=== PATIENT | male | born 1935 | race Hispanic/Latino ===

== ENCOUNTER 2018-05-20 18:09 | Emergency (ER) | payer MEDICARE, OTHER ==
[~2018-05-20] VITALS: Ht 165.1 cm; Wt 86.2 kg
[~2018-05-20 18:09] MED LIST: ARICEPT5 MG PO; CLOPIDOGREL75 MG PO; METOPROLOL TART50 MG PO; SEROQUEL XR200 MG PO; SIMVASTATIN40 MG PO; TAMSULOSIN HCL0.4 MG PO
[2018-05-20] MEDS ORDERED: TAMSULOSIN HCL0.4 MG PO (19:05)
[2018-05-20 19:47] LABS: BASOPHILS % 0.8 % (0.0-1.0); EOSINOPHILS # (AUTO) 0.1 (0.0-0.4); EOSINOPHILS % 2.8 % (0.0-6.0); HEMATOCRIT 33.3 % (38.2-49.6); HEMOGLOBIN 10.6 g/dL (14.0-18.0); LYMPHOCYTES # (AUTO) 2.3 (1.0-3.2); LYMPHOCYTES % 44.8 % (18.0-39.1); MEAN CORPUSCULAR HEMOGLOBIN 29.3 pg (28-32); MEAN CORPUSCULAR HGB CONC 31.8 g/dL (31-35); MONOCYTES # (AUTO) 0.8 (0.2-0.8); MONOCYTES % 14.9 % (4.4-11.3); NEUTROPHILS # (AUTO) 1.9 (2.1-6.9); NEUTROPHILS % 36.5 % (38.7-80.0); PLATELET COUNT 241 x10e3/uL (140-360); RED BLOOD COUNT 3.62 x10e6/uL (4.3-5.7); RED CELL DISTRIBUTION WIDTH 15.9 % (11.7-14.4)
[2018-05-20 20:05] LABS: INR 1.2; PROTHROMBIN TIME 14.3 seconds (11.9-14.5)
[2018-05-20 20:06] LABS: PARTIAL THROMBOPLASTIN TIME 33.2 seconds (23.8-35.5)
[2018-05-20 20:13] LABS: ALBUMIN 3.2 g/dL (3.5-5.0); CALCIUM 9.4 mg/dL (8.4-10.2); CREATININE, SERUM 1.27 mg/dL (0.72-1.25)
[2018-05-20 20:14] LABS: ALBUMIN/GLOBULIN RATIO 0.8 (0.8-2.0)
--- NOTE | 2018-05-20 20:36 | Diagnostic Imaging Report ---
EXAM: CT ABDOMEN AND PELVIS without IV CONTRAST INDICATION: Hematuria, history of stones COMPARISON: CT of the abdomen and pelvis without IV contrast July 30, 2009 TECHNIQUE: The abdomen and pelvis were scanned using a multidetector helical scanner. Coronal and sagittal reformations were obtained. Dose modulation, iterative reconstruction, and/or weight based adjustment of the mA/kV was utilized to reduce the radiation dose to as low as reasonably achievable. Renal stone protocol performed. IV Contrast: None Oral Contrast: None CTDIvol has been reviewed. It is below the limits set by the Radiation Protocol Committee (RPC). FINDINGS: LOWER THORAX: Nonspecific septal thickening and ground glass opacities, similar to prior exam. LIVER: No masses BILIARY: Cholecystectomy. No ductal dilation. SPLEEN: No masses PANCREAS: No masses ADRENALS: No nodules RIGHT KIDNEY: Stable conglomerate of multiple stones measuring 1.4 x 1.7 cm in total. This is similar to prior CT. No hydronephrosis. No ureteral stones. Simple cortical cyst measuring 2.2 cm medial aspect of the inferior pole. LEFT KIDNEY: Stable atrophy of the left kidney. Interval decrease in size of the simple cyst measuring 3.3 cm interpolar region. GI TRACT: No wall thickening or obstruction. Colonic diverticulosis. Normal appendix. VESSELS: Advanced atherosclerotic changes of the abdominal aorta with stable ectasia of the aorta and its branches. PERITONEUM/RETROPERITONEUM: No free air or fluid LYMPH NODES: No lymphadenopathy REPRODUCTIVE ORGANS: The prostate is within normal size limits. BLADDER: Layering high density material in the bladder. SOFT TISSUES: Normal BONES: No suspicious bone lesions. IMPRESSION: 1. Stable conglomerate of nonobstructing stones in the superior pole of the right kidney. 2. No hydronephrosis or ureteral stones. 3. Stable atrophy of the left kidney. 4. New layering high density material in the bladder. This could represent multiple layering bladder stones and/or blood clot. Signed by: Dr. Marylu Trejo M.D. on 05/20/2018 8:33 PM
[2018-05-20 21:01] LABS: CLARITY,URINE TURBID (CLEAR); COLOR,URINE RED (YELLOW)
[2018-05-20 21:02] LABS: KETONES,URINE TRACE (NEGATIVE); LEUKOCYTE ESTERASE ,URINE TRACE (NEGATIVE); NITRITE,URINE POSITIVE (NEGATIVE); PROTEIN,URINE DIPSTICK 3+ (NEGATIVE)
[2018-05-20 21:03] LABS: BILIRUBIN,URINE NEGATIVE (NEGATIVE); URINE UROBILINOGEN 1 mg/dL (0.2 - 1)
[2018-05-20 21:08] LABS: BACTERIA,URINE MODERATE /HPF; EPITHELIAL CELLS,URINE RARE /LPF; RBC,URINE >50 /HPF (0-5)
[2018-05-20] MEDS ORDERED: CEFTRIAXONE SOD 1 GM VIAL IV ONE (21:15)
[2018-05-20 21:31] VITALS: BP 181/76
== END 2018-05-20 21:40 | disposition home or self-care (01) ==
LOC: ER 18:09
DX: N30.91 Cystitis, unspecified with hematuria (principal); F03.90 Unspecified dementia, unspecified severity, without behavioral disturbance, psychotic disturbance, mood disturbance, and anxiety; I10 Essential (primary) hypertension; I25.10 Atherosclerotic heart disease of native coronary artery without angina pectoris; E78.5 Hyperlipidemia, unspecified; Z91.81 History of falling; Z86.73 Personal history of transient ischemic attack (TIA), and cerebral infarction without residual deficits
CPT/HCPCS: 36415; 74176; 80053; 81001; 85025; 85610; 85730; 87086; 99284

== ENCOUNTER 2021-03-22 13:18 | Emergency (ER) | payer MEDICARE, OTHER ==
[~2021-03-22] VITALS: Ht 165.1 cm; Wt 86.2 kg
[2021-03-22 15:28] LABS: BASOPHILS % 0.5 % (0.0-1.0); EOSINOPHILS # (AUTO) 0.1 (0.0-0.4); EOSINOPHILS % 1.1 % (0.0-6.0); HEMATOCRIT 35.8 % (38.2-49.6); HEMOGLOBIN 11.2 g/dL (14.0-18.0); LYMPHOCYTES # (AUTO) 1.8 (1.0-3.2); LYMPHOCYTES % 24.6 % (18.0-39.1); MEAN CORPUSCULAR HEMOGLOBIN 28.6 pg (28-32); MEAN CORPUSCULAR HGB CONC 31.3 g/dL (31-35); MEAN CORPUSCULAR VOLUME 91.3 fL (81-99); NEUTROPHILS # (AUTO) 4.4 (2.1-6.9); NEUTROPHILS % 60.4 % (38.7-80.0); PLATELET COUNT 237 x10e3/uL (140-360); RED BLOOD COUNT 3.92 x10e6/uL (4.3-5.7); RED CELL DISTRIBUTION WIDTH 16.7 % (11.7-14.4)
[2021-03-22 15:44] LABS: ALBUMIN 3.3 g/dL (3.5-5.0); ALBUMIN/GLOBULIN RATIO 0.8 (0.8-2.0); CALCIUM 8.9 mg/dL (8.4-10.2); CREATININE, SERUM 1.42 mg/dL (0.72-1.25)
[2021-03-22] MEDS ORDERED: CEFDINIR300 MG PO (17:49)
[2021-03-22] MEDS ORDERED: AZITHROMYCIN250 MG PO (17:50)
[2021-03-22] MEDS ORDERED: SODIUM CHLORIDE 0.9% 250ML 250 ML ONE (17:52)
[2021-03-22] MEDS ORDERED: CEFTRIAXONE 1 GM in SODIUM CHLORIDE 0.9% 50ML 50 ML IV SCH (18:00)
== END 2021-03-22 18:14 | disposition home or self-care (01) ==
LOC: ER 14:10
DX: J18.9 Pneumonia, unspecified organism (principal); I10 Essential (primary) hypertension; I25.10 Atherosclerotic heart disease of native coronary artery without angina pectoris; Z86.73 Personal history of transient ischemic attack (TIA), and cerebral infarction without residual deficits; H91.90 Unspecified hearing loss, unspecified ear
CPT/HCPCS: 36415; 70450; 71045; 80053; 84484; 85025; 93005; 99284; J0456; J0696; J7050

== ENCOUNTER 2021-11-29 13:54 | Inpatient (IN) | payer MEDICARE, OTHER ==
[~2021-11-29] VITALS: Ht 172.7 cm; Wt 102.1 kg
[~2021-11-29 13:54] MED LIST changes: +AZITHROMYCIN250 MG PO; +CEFDINIR300 MG PO
[2021-11-29 14:57] LABS: BASOPHILS % 0.2 % (0.0-1.0); EOSINOPHILS % 0.1 % (0.0-6.0); HEMATOCRIT 36.6 % (38.2-49.6); HEMOGLOBIN 11.7 g/dL (14.0-18.0); LYMPHOCYTES # (AUTO) 1.6 (1.0-3.2); LYMPHOCYTES % 14.8 % (18.0-39.1); MEAN CORPUSCULAR HEMOGLOBIN 29.1 pg (28-32); MONOCYTES # (AUTO) 1.3 (0.2-0.8); MONOCYTES % 11.8 % (4.4-11.3); NEUTROPHILS # (AUTO) 7.8 (2.1-6.9); NEUTROPHILS % 72.8 % (38.7-80.0); PLATELET COUNT 286 x10e3/uL (140-360); RED BLOOD COUNT 4.02 x10e6/uL (4.3-5.7); RED CELL DISTRIBUTION WIDTH 16.5 % (11.7-14.4)
[2021-11-29 15:15] LABS: ALBUMIN/GLOBULIN RATIO 0.6 (0.8-2.0); ANION GAP 14.8 mmol/L (8-16); CALCIUM 9.6 mg/dL (8.4-10.2); CREATININE, SERUM 1.37 mg/dL (0.72-1.25); POTASSIUM 3.8 mmol/L (3.5-5.1)
[2021-11-29] MEDS ORDERED: SODIUM CHLORIDE 0.9% 1000ML 1,000 ML IV ONE ×2 (15:15→17:45)
[2021-11-29 15:21] LABS: CREATINE KINASE MB 1.1 ng/mL (0-5.0)
[2021-11-29] MEDS: CEFTRIAXONE 1 GM in SODIUM CHLORIDE 0.9% 50ML 50 ML IV SCH (16:00)
[2021-11-29] MEDS: HYDRALAZINE HCL 20 MG/ML VIAL IV PRN (17:47)
[2021-11-29] MEDS ORDERED: SODIUM CHLORIDE 0.9% 1000ML 1,000 ML ONE (17:50)
[2021-11-29 20:00] VITALS: BP 160/59
[2021-11-29 20:15] VITALS: BP 160/59
[2021-11-29 20:38] LABS: CLARITY,URINE SL CLOUDY (CLEAR); COLOR,URINE YELLOW (YELLOW); KETONES,URINE 2+ (NEGATIVE); LEUKOCYTE ESTERASE ,URINE NEGATIVE (NEGATIVE); NITRITE,URINE NEGATIVE (NEGATIVE); PROTEIN,URINE DIPSTICK 1+ (NEGATIVE); URINE UROBILINOGEN 0.2 mg/dL (0.2 - 1)
[2021-11-29 20:45] LABS: AMORPHOUS SEDIMENT,URINE FEW (FEW); BACTERIA,URINE MODERATE /HPF
[2021-11-29 21:17] VITALS: BP 160/59
[2021-11-29] MEDS ORDERED: SYNTHROID50 MCG PO (21:19)
[2021-11-29] MEDS ORDERED: SODIUM CHLORIDE 0.45% 1,000 ML IV SCH (23:00)
[2021-11-30] VITALS: BP 173/69
[2021-11-30 04:00] VITALS: BP 195/73
[2021-11-30] MEDS: HYDRALAZINE HCL 20 MG/ML VIAL IV PRN (04:14)
[2021-11-30 04:53] LABS: BASOPHILS % 0.3 % (0.0-1.0); EOSINOPHILS % 0.1 % (0.0-6.0); HEMATOCRIT 31.7 % (38.2-49.6); HEMOGLOBIN 10.2 g/dL (14.0-18.0); LYMPHOCYTES # (AUTO) 2.4 (1.0-3.2); LYMPHOCYTES % 20.4 % (18.0-39.1); MEAN CORPUSCULAR HEMOGLOBIN 29.1 pg (28-32); MEAN CORPUSCULAR HGB CONC 32.2 g/dL (31-35); MEAN CORPUSCULAR VOLUME 90.3 fL (81-99); MONOCYTES # (AUTO) 1.7 (0.2-0.8); MONOCYTES % 14.2 % (4.4-11.3); NEUTROPHILS # (AUTO) 7.7 (2.1-6.9); NEUTROPHILS % 64.4 % (38.7-80.0); PLATELET COUNT 258 x10e3/uL (140-360); RED BLOOD COUNT 3.51 x10e6/uL (4.3-5.7); RED CELL DISTRIBUTION WIDTH 16.4 % (11.7-14.4)
[2021-11-30 05:26] LABS: ANION GAP 11.3 mmol/L (8-16); CALCIUM 8.3 mg/dL (8.4-10.2); CREATININE, SERUM 1.17 mg/dL (0.72-1.25); POTASSIUM 3.3 mmol/L (3.5-5.1)
[2021-11-30 05:53] LABS: CHOL/HDL RATIO 2.6 (3.9-4.7)
[2021-11-30 06:16] VITALS: BP 169/72
[2021-11-30] MEDS ORDERED: LEVOTHYROXINE SODIUM 25 MCG TABLET PO SCH (06:30)
[2021-11-30 08:00] VITALS: BP 164/66
[2021-11-30 09:00] VITALS: BP 164/66
[2021-11-30] MEDS ORDERED: MULTIVITAMINS/MINERALS TAB PO SCH (09:00)
[2021-11-30] MEDS ORDERED: CLOPIDOGREL BISULFATE 75 MG TAB PO SCH (09:00)
[2021-11-30] MEDS ORDERED: TAMSULOSIN HCL 0.4 MG CAP PO SCH (09:00)
[2021-11-30] MEDS ORDERED: METOPROLOL TARTRATE 50 MG TAB PO SCH (09:00)
[2021-11-30] MEDS ORDERED: SODIUM CHLORIDE 0.9% 1000ML 1,000 ML IV SCH (12:15)
[2021-11-30] MEDS ORDERED: POTASSIUM CHLORIDE 20 MEQ TAB CR PO ONE (12:45)
[2021-11-30 16:00] VITALS: BP 156/73
[2021-11-30] MEDS: CEFTRIAXONE 1 GM in SODIUM CHLORIDE 0.9% 50ML 50 ML IV SCH (16:04)
[2021-11-30] MEDS ORDERED: QUETIAPINE FUMARATE 200 MG PO SCH (21:00)
[2021-11-30] MEDS ORDERED: DONEPEZIL HCL 5 MG TAB PO SCH (21:00)
== END 2021-11-30 18:53 | DRG 683 ==
LOC: ER 14:00 → ERHOLD 17:35 → MED/SURG 18:30
PROVIDERS: ADMIT Internal Medicine; ATTEND Internal Medicine
DX: N17.9 Acute kidney failure, unspecified (principal); N39.0 Urinary tract infection, site not specified; I69.359 Hemiplegia and hemiparesis following cerebral infarction affecting unspecified side; E03.9 Hypothyroidism, unspecified; E66.01 Morbid (severe) obesity due to excess calories; Z68.34 Body mass index [BMI] 34.0-34.9, adult; G30.9 Alzheimer's disease, unspecified; F02.80 Dementia in other diseases classified elsewhere, unspecified severity, without behavioral disturbance, psychotic disturbance, mood disturbance, and anxiety; I25.10 Atherosclerotic heart disease of native coronary artery without angina pectoris; H91.90 Unspecified hearing loss, unspecified ear; R31.29 Other microscopic hematuria; N28.1 Cyst of kidney, acquired; E87.6 Hypokalemia; E66.9 Obesity, unspecified; C61 Malignant neoplasm of prostate; E86.0 Dehydration; Z74.09 Other reduced mobility
CPT/HCPCS: 36415; 70450; 71045; 76770; 80048; 80053; 80061; 81001; 82550; 82553; 83036; 83605; 84443; 84484; 85025; 87040; 87086; 93005; 94799; 99251; 99284; J0360; J0696; J7030; U0002

== ENCOUNTER 2022-01-07 11:40 | Inpatient (IN) | payer MEDICARE, OTHER ==
[~2022-01-07] VITALS: Ht 172.7 cm; Wt 102.1 kg
[~2022-01-07 11:40] MED LIST changes: +SYNTHROID50 MCG PO
[2022-01-07 12:17] LABS: BASOPHILS # (AUTO) 0.1 (0.0-0.1); BASOPHILS % 0.7 % (0.0-1.0); EOSINOPHILS # (AUTO) 0.1 (0.0-0.4); EOSINOPHILS % 1.6 % (0.0-6.0); HEMATOCRIT 29.6 % (38.2-49.6); HEMOGLOBIN 9.7 g/dL (14.0-18.0); LYMPHOCYTES # (AUTO) 2.5 (1.0-3.2); LYMPHOCYTES % 36.1 % (18.0-39.1); MEAN CORPUSCULAR HEMOGLOBIN 29.5 pg (28-32); MEAN CORPUSCULAR HGB CONC 32.8 g/dL (31-35); MONOCYTES # (AUTO) 0.7 (0.2-0.8); MONOCYTES % 10.1 % (4.4-11.3); NEUTROPHILS # (AUTO) 3.5 (2.1-6.9); NEUTROPHILS % 51.2 % (38.7-80.0); PLATELET COUNT 320 x10e3/uL (140-360); RED BLOOD COUNT 3.29 x10e6/uL (4.3-5.7); RED CELL DISTRIBUTION WIDTH 16.4 % (11.7-14.4)
[2022-01-07 12:42] LABS: ALBUMIN 2.6 g/dL (3.5-5.0); ALBUMIN/GLOBULIN RATIO 0.6 (0.8-2.0); ANION GAP 12.9 mmol/L (8-16); CALCIUM 8.5 mg/dL (8.4-10.2); CREATININE, SERUM 1.12 mg/dL (0.72-1.25); POTASSIUM 3.9 mmol/L (3.5-5.1)
[2022-01-07] MEDS ORDERED: SODIUM CHLORIDE FLUSH 10 ML SYR INJ PRN (14:00)
[2022-01-07] MEDS ORDERED: GUAIFENESI100 MG/5 M PO (15:22)
[2022-01-07] MEDS ORDERED: QUETIAPINE FUMA25 MG PO (15:22)
[2022-01-07] MEDS ORDERED: HYDRALAZINE HCL10 MG PO (15:22)
[2022-01-07 16:00] VITALS: BP 153/62
[2022-01-07] MEDS: SODIUM CHLORIDE 0.9% 250ML IRRIG IR SCH ×4 (16:15→21:17)
[2022-01-07 16:21] VITALS: BP 153/62
[2022-01-07] MEDS ORDERED: GUAIFENESIN 200 MG/10 ML UDC PO PRN (17:30)
[2022-01-07] MEDS ORDERED: HYDRALAZINE HCL 10 MG TAB PO PRN (17:30)
[2022-01-07] MEDS ORDERED: IOPAMIDOL 370 MG/ML 100 ML INFUS..BTL INJ ONE (17:57)
[2022-01-07] MEDS ORDERED: SODIUM CHLORIDE 0.9% 250ML 250 ML ONE (17:58)
[2022-01-07] MEDS: METOPROLOL TARTRATE 50 MG TAB PO SCH (18:35)
[2022-01-07] MEDS: TAMSULOSIN HCL 0.4 MG CAP PO SCH (21:17)
[2022-01-07] MEDS: DONEPEZIL HCL 5 MG TAB PO SCH (21:17)
[2022-01-07] MEDS: QUETIAPINE FUMARATE 25 MG TAB PO SCH (21:17)
[2022-01-08] VITALS (9 sets, daily range): BP systolic 92–165; BP diastolic 42–63
[2022-01-08] MEDS: SODIUM CHLORIDE 0.9% 250ML IRRIG IR SCH ×6 (01:58→22:00)
[2022-01-08] MEDS: LEVOTHYROXINE SODIUM 25 MCG TABLET PO SCH (05:39)
[2022-01-08 06:16] LABS: BASOPHILS % 0.1 % (0.0-1.0); HEMATOCRIT 30.3 % (38.2-49.6); HEMOGLOBIN 9.7 g/dL (14.0-18.0); MEAN CORPUSCULAR HEMOGLOBIN 29.1 pg (28-32); MONOCYTES # (AUTO) 1.3 (0.2-0.8); MONOCYTES % 9.3 % (4.4-11.3); NEUTROPHILS # (AUTO) 10.7 (2.1-6.9); NEUTROPHILS % 76.2 % (38.7-80.0); PLATELET COUNT 277 x10e3/uL (140-360); RED BLOOD COUNT 3.33 x10e6/uL (4.3-5.7); RED CELL DISTRIBUTION WIDTH 16.4 % (11.7-14.4)
[2022-01-08 06:42] LABS: ANION GAP 12.1 mmol/L (8-16); CALCIUM 8.3 mg/dL (8.4-10.2); CREATININE, SERUM 1.13 mg/dL (0.72-1.25); POTASSIUM 4.1 mmol/L (3.5-5.1)
[2022-01-08] MEDS: METOPROLOL TARTRATE 50 MG TAB PO SCH ×2 (09:31→17:00)
[2022-01-08] MEDS: B&O 60MG R/S 60 MG SUPP PR PRN (12:12)
[2022-01-08 17:20] LABS: CLARITY,URINE CLOUDY (CLEAR); COLOR,URINE RED (YELLOW); KETONES,URINE 1+ (NEGATIVE); LEUKOCYTE ESTERASE ,URINE 2+ (NEGATIVE); NITRITE,URINE POSITIVE (NEGATIVE); PROTEIN,URINE DIPSTICK >=300 (NEGATIVE); URINE UROBILINOGEN 1 mg/dL (0.2 - 1)
[2022-01-08 17:30] LABS: BACTERIA,URINE MANY /HPF; EPITHELIAL CELLS,URINE FEW /LPF; RBC,URINE >50 /HPF (0-5); WBC,URINE (MAN) 21-50 /HPF (0-5)
[2022-01-08] MEDS: QUETIAPINE FUMARATE 25 MG TAB PO SCH (21:00)
[2022-01-08] MEDS: TAMSULOSIN HCL 0.4 MG CAP PO SCH (21:04)
[2022-01-08] MEDS: DONEPEZIL HCL 5 MG TAB PO SCH (21:04)
[2022-01-09] MEDS: QUETIAPINE FUMARATE 25 MG TAB PO SCH ×2 (00:32→20:15)
[2022-01-09] MEDS: SODIUM CHLORIDE 0.9% 250ML IRRIG IR SCH ×6 (04:30→22:30)
[2022-01-09 05:16] VITALS: BP 130/67
[2022-01-09 05:40] LABS: BASOPHILS % 0.3 % (0.0-1.0); EOSINOPHILS # (AUTO) 0.2 (0.0-0.4); EOSINOPHILS % 1.7 % (0.0-6.0); HEMATOCRIT 27.4 % (38.2-49.6); HEMOGLOBIN 8.8 g/dL (14.0-18.0); LYMPHOCYTES # (AUTO) 2.8 (1.0-3.2); MEAN CORPUSCULAR HEMOGLOBIN 29.4 pg (28-32); MEAN CORPUSCULAR HGB CONC 32.1 g/dL (31-35); MEAN CORPUSCULAR VOLUME 91.6 fL (81-99); MONOCYTES # (AUTO) 0.9 (0.2-0.8); MONOCYTES % 9.3 % (4.4-11.3); NEUTROPHILS # (AUTO) 5.8 (2.1-6.9); NEUTROPHILS % 59.4 % (38.7-80.0); PLATELET COUNT 260 x10e3/uL (140-360); RED BLOOD COUNT 2.99 x10e6/uL (4.3-5.7); RED CELL DISTRIBUTION WIDTH 16.7 % (11.7-14.4)
[2022-01-09 06:04] LABS: ANION GAP 13.6 mmol/L (8-16); CREATININE, SERUM 1.17 mg/dL (0.72-1.25); POTASSIUM 3.6 mmol/L (3.5-5.1)
[2022-01-09] MEDS: LEVOTHYROXINE SODIUM 25 MCG TABLET PO SCH (06:04)
[2022-01-09 08:02] VITALS: BP 133/61
[2022-01-09] MEDS: METOPROLOL TARTRATE 50 MG TAB PO SCH ×2 (08:44→16:57)
[2022-01-09] MEDS: B&O 60MG R/S 60 MG SUPP PR PRN ×2 (11:29→22:30)
[2022-01-09 12:45] VITALS: BP 150/65
[2022-01-09 20:00] VITALS: BP 117/50
[2022-01-09] MEDS: DONEPEZIL HCL 5 MG TAB PO SCH (20:15)
[2022-01-09] MEDS: TAMSULOSIN HCL 0.4 MG CAP PO SCH (20:15)
[2022-01-10] VITALS (8 sets, daily range): BP systolic 95–134; BP diastolic 31–82
[2022-01-10] MEDS: SODIUM CHLORIDE 0.9% 250ML IRRIG IR SCH ×6 (02:04→20:56)
[2022-01-10] MEDS: LEVOTHYROXINE SODIUM 25 MCG TABLET PO SCH (06:11)
[2022-01-10] MEDS: METOPROLOL TARTRATE 50 MG TAB PO SCH ×2 (08:19→16:26)
[2022-01-10] MEDS: B&O 60MG R/S 60 MG SUPP PR PRN ×2 (09:30→20:56)
[2022-01-10 10:08] LABS: ANION GAP 13.1 mmol/L (8-16); CALCIUM 8.2 mg/dL (8.4-10.2); CREATININE, SERUM 1.13 mg/dL (0.72-1.25); POTASSIUM 4.1 mmol/L (3.5-5.1)
[2022-01-10] MEDS: DONEPEZIL HCL 5 MG TAB PO SCH (20:05)
[2022-01-10] MEDS: QUETIAPINE FUMARATE 25 MG TAB PO SCH (20:05)
[2022-01-10] MEDS: TAMSULOSIN HCL 0.4 MG CAP PO SCH (20:05)
[2022-01-11] VITALS (7 sets, daily range): BP systolic 110–134; BP diastolic 22–56
[2022-01-11] MEDS: SODIUM CHLORIDE 0.9% 250ML IRRIG IR SCH ×6 (01:30→21:31)
[2022-01-11] MEDS: LEVOTHYROXINE SODIUM 25 MCG TABLET PO SCH (05:34)
[2022-01-11] MEDS: B&O 60MG R/S 60 MG SUPP PR PRN ×3 (05:49→21:31)
[2022-01-11] MEDS: METOPROLOL TARTRATE 50 MG TAB PO SCH ×3 (09:00→16:15)
[2022-01-11 10:42] LABS: HEMATOCRIT 28.1 % (38.2-49.6); HEMOGLOBIN 8.9 g/dL (14.0-18.0)
[2022-01-11] MEDS ORDERED: SODIUM CHLORIDE 0.9% 1000ML 1,000 ML ONE (11:02)
[2022-01-11] MEDS: QUETIAPINE FUMARATE 25 MG TAB PO SCH (21:30)
[2022-01-11] MEDS: TAMSULOSIN HCL 0.4 MG CAP PO SCH (21:30)
[2022-01-11] MEDS: DONEPEZIL HCL 5 MG TAB PO SCH (21:30)
[2022-01-12] VITALS (8 sets, daily range): BP systolic 109–123; BP diastolic 40–67
[2022-01-12] MEDS: SODIUM CHLORIDE 0.9% 250ML IRRIG IR SCH ×6 (02:32→20:39)
[2022-01-12] MEDS: B&O 60MG R/S 60 MG SUPP PR PRN ×3 (04:00→20:39)
[2022-01-12] MEDS: LEVOTHYROXINE SODIUM 25 MCG TABLET PO SCH (05:21)
[2022-01-12] MEDS: METOPROLOL TARTRATE 50 MG TAB PO SCH ×2 (09:00→17:00)
[2022-01-12 10:27] LABS: BASOPHILS # (AUTO) 0.1 (0.0-0.1); BASOPHILS % 0.4 % (0.0-1.0); EOSINOPHILS # (AUTO) 0.4 (0.0-0.4); EOSINOPHILS % 3.7 % (0.0-6.0); HEMATOCRIT 29.5 % (38.2-49.6); HEMOGLOBIN 9.2 g/dL (14.0-18.0); LYMPHOCYTES # (AUTO) 3.3 (1.0-3.2); LYMPHOCYTES % 29.6 % (18.0-39.1); MEAN CORPUSCULAR HEMOGLOBIN 29.3 pg (28-32); MEAN CORPUSCULAR HGB CONC 31.2 g/dL (31-35); MEAN CORPUSCULAR VOLUME 93.9 fL (81-99); MONOCYTES # (AUTO) 1.2 (0.2-0.8); MONOCYTES % 10.7 % (4.4-11.3); NEUTROPHILS # (AUTO) 6.2 (2.1-6.9); NEUTROPHILS % 55.2 % (38.7-80.0); PLATELET COUNT 340 x10e3/uL (140-360); RED BLOOD COUNT 3.14 x10e6/uL (4.3-5.7); RED CELL DISTRIBUTION WIDTH 16.6 % (11.7-14.4)
[2022-01-12] MEDS ORDERED: ACETAMINOPHEN 325 MG TAB PO PRN (14:30)
[2022-01-12] MEDS: PHENAZOPYRIDINE HCL 100 MG TAB PO PRN (14:50)
[2022-01-12] MEDS: QUETIAPINE FUMARATE 25 MG TAB PO SCH (20:39)
[2022-01-12] MEDS: DONEPEZIL HCL 5 MG TAB PO SCH (20:39)
[2022-01-12] MEDS: TAMSULOSIN HCL 0.4 MG CAP PO SCH (20:39)
[2022-01-13] VITALS (8 sets, daily range): BP systolic 95–134; BP diastolic 40–72
[2022-01-13] MEDS: SODIUM CHLORIDE 0.9% 250ML IRRIG IR SCH ×6 (02:45→20:38)
[2022-01-13] MEDS: B&O 60MG R/S 60 MG SUPP PR PRN ×3 (03:45→20:38)
[2022-01-13] MEDS: LEVOTHYROXINE SODIUM 25 MCG TABLET PO SCH (06:03)
[2022-01-13] MEDS: METOPROLOL TARTRATE 50 MG TAB PO SCH ×2 (09:00→17:37)
[2022-01-13] MEDS: DEXTROSE 5%/0.45% SOD CHL 1,000 ML IV SCH (18:15)
[2022-01-13] MEDS ORDERED: SODIUM CHLORIDE 0.9% 250ML 250 ML IV ONE (20:00)
[2022-01-13] MEDS: DONEPEZIL HCL 5 MG TAB PO SCH (20:24)
[2022-01-13] MEDS: TAMSULOSIN HCL 0.4 MG CAP PO SCH (20:24)
[2022-01-13] MEDS: PHENAZOPYRIDINE HCL 100 MG TAB PO PRN (20:25)
[2022-01-13] MEDS: QUETIAPINE FUMARATE 25 MG TAB PO SCH (20:25)
[2022-01-13] MEDS ORDERED: LORAZEPAM INJ 2 MG/ML VIAL IV ONE (23:00)
[2022-01-14] VITALS (7 sets, daily range): BP systolic 92–121; BP diastolic 48–78
[2022-01-14] MEDS: SODIUM CHLORIDE 0.9% 250ML IRRIG IR SCH ×6 (00:53→22:19)
[2022-01-14] MEDS: DEXTROSE 5%/0.45% SOD CHL 1,000 ML IV SCH ×3 (04:58→23:24)
[2022-01-14] MEDS: LEVOTHYROXINE SODIUM 25 MCG TABLET PO SCH (04:58)
[2022-01-14 05:00] LABS: BASOPHILS % 0.4 % (0.0-1.0); EOSINOPHILS # (AUTO) 0.1 (0.0-0.4); EOSINOPHILS % 1.7 % (0.0-6.0); HEMATOCRIT 27.1 % (38.2-49.6); HEMOGLOBIN 8.3 g/dL (14.0-18.0); LYMPHOCYTES # (AUTO) 1.5 (1.0-3.2); LYMPHOCYTES % 19.1 % (18.0-39.1); MEAN CORPUSCULAR HGB CONC 30.6 g/dL (31-35); MEAN CORPUSCULAR VOLUME 94.8 fL (81-99); MONOCYTES # (AUTO) 0.9 (0.2-0.8); MONOCYTES % 11.9 % (4.4-11.3); NEUTROPHILS # (AUTO) 5.3 (2.1-6.9); NEUTROPHILS % 66.6 % (38.7-80.0); PLATELET COUNT 350 x10e3/uL (140-360); RED BLOOD COUNT 2.86 x10e6/uL (4.3-5.7); RED CELL DISTRIBUTION WIDTH 16.3 % (11.7-14.4)
[2022-01-14 05:20] LABS: ANION GAP 15.9 mmol/L (8-16); CALCIUM 8.3 mg/dL (8.4-10.2); CREATININE, SERUM 1.76 mg/dL (0.72-1.25); POTASSIUM 3.9 mmol/L (3.5-5.1)
[2022-01-14] MEDS: METOPROLOL TARTRATE 50 MG TAB PO SCH ×2 (09:00→17:00)
[2022-01-14] MEDS ORDERED: SEVOFLURANE INHAL SOLN 250 ML PEN BTL ONE (12:11)
[2022-01-14] MEDS ORDERED: LIDOCAINE HCL 2% LOCAL INJ 5 ML SDV VIAL INJ ONE (12:11)
[2022-01-14] MEDS ORDERED: PROPOFOL IV EMULSION 10 MG/ML 20 ML VIAL ONE (12:11)
[2022-01-14] MEDS ORDERED: POVIDONE IODINE 0.05% 0.05 % ML PO ONE (12:11)
[2022-01-14] MEDS: B&O 60MG R/S 60 MG SUPP PR PRN (12:18)
[2022-01-14] MEDS ORDERED: FENTANYL CITRATE/PF 100MCG/2 ML INJ ONE ×2 (12:49→19:30)
[2022-01-14] MEDS ORDERED: B&O 60MG R/S 60 MG SUPP PR ONE (18:04)
[2022-01-14] MEDS ORDERED: IOPAMIDOL 300MG/ML 50ML INFUS..BTL IV ONE (18:04)
[2022-01-14] MEDS ORDERED: MIDAZOLAM HCL 2 MG/2 ML VIAL ONE (19:44)
[2022-01-14] MEDS ORDERED: LORAZEPAM INJ 2 MG/ML VIAL IV PRN (20:30)
[2022-01-14] MEDS: DONEPEZIL HCL 5 MG TAB PO SCH (20:52)
[2022-01-14] MEDS: QUETIAPINE FUMARATE 25 MG TAB PO SCH (20:52)
[2022-01-14] MEDS: TAMSULOSIN HCL 0.4 MG CAP PO SCH (20:52)
[2022-01-14] MEDS: LORAZEPAM INJ 2 MG/ML VIAL IV PRN (21:05)
[2022-01-15] VITALS (12 sets, daily range): BP systolic 135–170; BP diastolic 62–79
[2022-01-15] MEDS: SODIUM CHLORIDE 0.9% 250ML IRRIG IR SCH ×6 (01:38→21:13)
[2022-01-15] MEDS: LORAZEPAM INJ 2 MG/ML VIAL IV PRN ×5 (01:38→22:15)
[2022-01-15] MEDS: LEVOTHYROXINE SODIUM 25 MCG TABLET PO SCH (05:50)
[2022-01-15 07:19] LABS: BASOPHILS % 0.4 % (0.0-1.0); EOSINOPHILS % 0.1 % (0.0-6.0); HEMATOCRIT 26.9 % (38.2-49.6); HEMOGLOBIN 8.2 g/dL (14.0-18.0); LYMPHOCYTES # (AUTO) 1.6 (1.0-3.2); MEAN CORPUSCULAR HEMOGLOBIN 28.9 pg (28-32); MEAN CORPUSCULAR HGB CONC 30.5 g/dL (31-35); MEAN CORPUSCULAR VOLUME 94.7 fL (81-99); MONOCYTES % 9.5 % (4.4-11.3); NEUTROPHILS # (AUTO) 7.5 (2.1-6.9); NEUTROPHILS % 73.6 % (38.7-80.0); PLATELET COUNT 361 x10e3/uL (140-360); RED BLOOD COUNT 2.84 x10e6/uL (4.3-5.7); RED CELL DISTRIBUTION WIDTH 16.5 % (11.7-14.4)
[2022-01-15 07:58] LABS: ANION GAP 17.7 mmol/L (8-16); CALCIUM 8.1 mg/dL (8.4-10.2); CREATININE, SERUM 1.61 mg/dL (0.72-1.25); POTASSIUM 3.7 mmol/L (3.5-5.1)
[2022-01-15] MEDS: ALPRAZOLAM 0.25 MG TAB PO SCH ×3 (10:45→21:13)
[2022-01-15] MEDS: DEXTROSE 5%/0.45% SOD CHL 1,000 ML IV SCH ×2 (12:38→20:06)
[2022-01-15] MEDS: METOPROLOL TARTRATE 50 MG TAB PO SCH (17:00)
[2022-01-15] MEDS: DONEPEZIL HCL 5 MG TAB PO SCH (20:06)
[2022-01-15] MEDS: QUETIAPINE FUMARATE 25 MG TAB PO SCH (20:07)
[2022-01-15] MEDS: TAMSULOSIN HCL 0.4 MG CAP PO SCH (20:07)
[2022-01-16] VITALS (7 sets, daily range): BP systolic 128–174; BP diastolic 57–87
[2022-01-16] MEDS: SODIUM CHLORIDE 0.9% 250ML IRRIG IR SCH ×6 (01:00→22:00)
[2022-01-16] MEDS: LEVOTHYROXINE SODIUM 25 MCG TABLET PO SCH (05:00)
[2022-01-16] MEDS: ALPRAZOLAM 0.25 MG TAB PO SCH ×3 (05:00→21:37)
[2022-01-16] MEDS: DEXTROSE 5%/0.45% SOD CHL 1,000 ML IV SCH ×2 (06:51→16:29)
[2022-01-16] MEDS: METOPROLOL TARTRATE 50 MG TAB PO SCH ×2 (08:22→17:53)
[2022-01-16] MEDS: LORAZEPAM INJ 2 MG/ML VIAL IV PRN ×2 (10:19→20:56)
[2022-01-16] MEDS: TAMSULOSIN HCL 0.4 MG CAP PO SCH (21:00)
[2022-01-16] MEDS: DONEPEZIL HCL 5 MG TAB PO SCH (21:37)
[2022-01-16] MEDS: QUETIAPINE FUMARATE 25 MG TAB PO SCH (21:37)
[2022-01-17] VITALS: BP 101/48
[2022-01-17] MEDS: DEXTROSE 5%/0.45% SOD CHL 1,000 ML IV SCH ×2 (02:51→09:06)
[2022-01-17 04:00] VITALS: BP 168/61
[2022-01-17] MEDS: ALPRAZOLAM 0.25 MG TAB PO SCH ×3 (06:00→14:50)
[2022-01-17 08:00] VITALS: BP 110/52
[2022-01-17 08:02] VITALS: BP 130/75
[2022-01-17] MEDS: LEVOTHYROXINE SODIUM 25 MCG TABLET PO SCH (09:06)
[2022-01-17] MEDS: METOPROLOL TARTRATE 50 MG TAB PO SCH ×2 (09:07→16:57)
[2022-01-17] MEDS: PHENAZOPYRIDINE HCL 100 MG TAB PO PRN (09:07)
[2022-01-17 09:22] LABS: BASOPHILS % 0.2 % (0.0-1.0); EOSINOPHILS # (AUTO) 0.1 (0.0-0.4); EOSINOPHILS % 1.2 % (0.0-6.0); HEMATOCRIT 26.9 % (38.2-49.6); HEMOGLOBIN 8.2 g/dL (14.0-18.0); LYMPHOCYTES # (AUTO) 1.9 (1.0-3.2); MEAN CORPUSCULAR HEMOGLOBIN 28.8 pg (28-32); MEAN CORPUSCULAR HGB CONC 30.5 g/dL (31-35); MEAN CORPUSCULAR VOLUME 94.4 fL (81-99); MONOCYTES # (AUTO) 0.8 (0.2-0.8); MONOCYTES % 9.2 % (4.4-11.3); NEUTROPHILS # (AUTO) 6.1 (2.1-6.9); NEUTROPHILS % 67.8 % (38.7-80.0); PLATELET COUNT 327 x10e3/uL (140-360); RED BLOOD COUNT 2.85 x10e6/uL (4.3-5.7); RED CELL DISTRIBUTION WIDTH 16.7 % (11.7-14.4)
[2022-01-17 09:42] LABS: ANION GAP 10.2 mmol/L (8-16); CALCIUM 7.8 mg/dL (8.4-10.2); CREATININE, SERUM 0.9 mg/dL (0.72-1.25); POTASSIUM 3.2 mmol/L (3.5-5.1)
[2022-01-17 12:06] VITALS: BP 142/76
[2022-01-17] MEDS ORDERED: XANAX0.25 MG PO (15:13)
[2022-01-17] MEDS ORDERED: MEROPENEM500 MG IV (15:13)
[2022-01-17] MEDS ORDERED: PYRIDIUM100 MG PO (15:15)
[2022-01-17] MEDS ORDERED: TYLENOL325 MG PO (15:17)
[2022-01-17] MEDS ORDERED: POTASSIUM CHLORIDE 20 MEQ TAB CR PO ONE (16:00)
[2022-01-17 16:23] VITALS: BP 163/71
== END 2022-01-17 17:30 | DRG 872 ==
LOC: ER 11:45 → ERHOLD 13:48 → ER 14:40 → MED/SURG 14:55
PROVIDERS: ADMIT Internal Medicine; ATTEND Internal Medicine
PROC: 0TCB8ZZ Extirpation of Matter from Bladder, Via Natural or Artificial Opening Endoscopic (ICD-10-PCS; 2022-01-14)
PROC: 0TCD8ZZ Extirpation of Matter from Urethra, Via Natural or Artificial Opening Endoscopic (ICD-10-PCS; 2022-01-14)
PROC: BT141ZZ Fluoroscopy of Kidneys, Ureters and Bladder using Low Osmolar Contrast (ICD-10-PCS; principal; 2022-01-14 17:57)
DX: A41.59 Other Gram-negative sepsis (principal); R47.01 Aphasia; N39.0 Urinary tract infection, site not specified; Z16.12 Extended spectrum beta lactamase (ESBL) resistance; N32.89 Other specified disorders of bladder; N28.89 Other specified disorders of kidney and ureter; R31.0 Gross hematuria; G30.9 Alzheimer's disease, unspecified; F02.80 Dementia in other diseases classified elsewhere, unspecified severity, without behavioral disturbance, psychotic disturbance, mood disturbance, and anxiety; I10 Essential (primary) hypertension; Z85.46 Personal history of malignant neoplasm of prostate; I25.10 Atherosclerotic heart disease of native coronary artery without angina pectoris; E78.5 Hyperlipidemia, unspecified; Z91.81 History of falling; Z90.49 Acquired absence of other specified parts of digestive tract; D64.9 Anemia, unspecified; Z68.34 Body mass index [BMI] 34.0-34.9, adult; F01.50 Vascular dementia, unspecified severity, without behavioral disturbance, psychotic disturbance, mood disturbance, and anxiety; E03.9 Hypothyroidism, unspecified; I70.1 Atherosclerosis of renal artery; I71.4 Abdominal aortic aneurysm, without rupture; N20.0 Calculus of kidney; Z87.442 Personal history of urinary calculi; F41.0 Panic disorder [episodic paroxysmal anxiety]; H91.3 Deaf nonspeaking, not elsewhere classified; I69.344 Monoplegia of lower limb following cerebral infarction affecting left non-dominant side; I69.341 Monoplegia of lower limb following cerebral infarction affecting right dominant side
CPT/HCPCS: 36415; 71046; 74178; 74420; 80048; 80053; 81001; 82948; 83970; 84550; 85014; 85018; 85025; 87040; 87086; 87186; 93005; 96360; 97139; 99251; 99284; C1758; J0696; J2001; J2060; J2185; J2250; J2543; J3010; J7030; J7050; Q9967

== ENCOUNTER 2022-01-25 23:05 | Emergency (ER) | payer MEDICARE, OTHER ==
[~2022-01-25] VITALS: Ht 172.7 cm; Wt 102.1 kg
[~2022-01-25 23:05] MED LIST changes: +GUAIFENESI100 MG/5 M PO; +HYDRALAZINE HCL10 MG PO; +MEROPENEM500 MG IV; +PYRIDIUM100 MG PO; +QUETIAPINE FUMA25 MG PO; +TYLENOL325 MG PO; +XANAX0.25 MG PO
[2022-01-26 02:02] VITALS: BP 119/43
== END 2022-01-26 02:30 ==
LOC: ER 23:09
DX: M25.431 Effusion, right wrist (principal); W06.XXXA Fall from bed, initial encounter; Y92.098 Other place in other non-institutional residence as the place of occurrence of the external cause; R50.9 Fever, unspecified; F03.90 Unspecified dementia, unspecified severity, without behavioral disturbance, psychotic disturbance, mood disturbance, and anxiety; I10 Essential (primary) hypertension; E78.5 Hyperlipidemia, unspecified; H91.90 Unspecified hearing loss, unspecified ear; I25.10 Atherosclerotic heart disease of native coronary artery without angina pectoris; Z86.73 Personal history of transient ischemic attack (TIA), and cerebral infarction without residual deficits; Z85.46 Personal history of malignant neoplasm of prostate
CPT/HCPCS: 70450; 72100; 72125; 72170; 99283

== ENCOUNTER 2022-07-14 17:04 | Emergency (ER) | payer MEDICARE, OTHER ==
[~2022-07-14] VITALS: Ht 172.7 cm; Wt 102.1 kg
== END 2022-07-14 21:45 | disposition home or self-care (01) ==
LOC: ER 17:10
DX: S00.83XA Contusion of other part of head, initial encounter (principal); W01.0XXA Fall on same level from slipping, tripping and stumbling without subsequent striking against object, initial encounter; Y93.01 Activity, walking, marching and hiking; Y92.89 Other specified places as the place of occurrence of the external cause; F03.90 Unspecified dementia, unspecified severity, without behavioral disturbance, psychotic disturbance, mood disturbance, and anxiety; I10 Essential (primary) hypertension; E78.5 Hyperlipidemia, unspecified; I25.10 Atherosclerotic heart disease of native coronary artery without angina pectoris; F32.A Depression, unspecified; Z86.73 Personal history of transient ischemic attack (TIA), and cerebral infarction without residual deficits
CPT/HCPCS: 70450; 71045; 72125; 72170; 99283

== ENCOUNTER 2022-08-08 14:48 | Emergency (ER) | payer MEDICARE, OTHER ==
[~2022-08-08] VITALS: Ht 172.7 cm; Wt 68.0 kg
[2022-08-08 17:54] LABS: BASOPHILS # (AUTO) 0.1 (0.0-0.1); BASOPHILS % 0.5 % (0.0-1.0); EOSINOPHILS % 0.2 % (0.0-6.0); HEMOGLOBIN 11.9 g/dL (14.0-18.0); LYMPHOCYTES # (AUTO) 2.1 (1.0-3.2); LYMPHOCYTES % 20.8 % (18.0-39.1); MEAN CORPUSCULAR HEMOGLOBIN 28.8 pg (28-32); MEAN CORPUSCULAR HGB CONC 31.3 g/dL (31-35); MONOCYTES # (AUTO) 0.9 (0.2-0.8); MONOCYTES % 8.6 % (4.4-11.3); NEUTROPHILS % 69.4 % (38.7-80.0); PLATELET COUNT 250 x10e3/uL (140-360); RED BLOOD COUNT 4.13 x10e6/uL (4.3-5.7); RED CELL DISTRIBUTION WIDTH 15.4 % (11.7-14.4)
[2022-08-08 17:58] LABS: INR 1.05; PROTHROMBIN TIME 14.7 seconds (11.9-14.5)
[2022-08-08 18:04] LABS: ALBUMIN 3.7 g/dL (3.5-5.0); ALBUMIN/GLOBULIN RATIO 0.8 (0.8-2.0); ANION GAP 15.3 mmol/L (8-16); CALCIUM 8.9 mg/dL (8.4-10.2); CREATININE, SERUM 1.04 mg/dL (0.72-1.25); POTASSIUM 3.3 mmol/L (3.5-5.1)
[2022-08-08] MEDS ORDERED: HYDRALAZINE HCL 20 MG/ML VIAL IV STA (18:28)
[2022-08-08] MEDS ORDERED: LEVETIRACETAM 500MG/5ML VIAL 500 MG in SODIUM CHLORIDE 0.9% 100 ML IV SCH (18:30)
[2022-08-08 19:39] VITALS: BP 117/97
== END 2022-08-08 20:00 | disposition other institution (70) ==
LOC: ER 15:15
DX: S00.83XA Contusion of other part of head, initial encounter (principal); S06.5X0A Traumatic subdural hemorrhage without loss of consciousness, initial encounter; I16.0 Hypertensive urgency; F03.90 Unspecified dementia, unspecified severity, without behavioral disturbance, psychotic disturbance, mood disturbance, and anxiety; W18.30XA Fall on same level, unspecified, initial encounter; Y93.01 Activity, walking, marching and hiking; Y92.89 Other specified places as the place of occurrence of the external cause; I10 Essential (primary) hypertension; E78.5 Hyperlipidemia, unspecified; F32.A Depression, unspecified; Z20.822 Contact with and (suspected) exposure to COVID-19; Z86.73 Personal history of transient ischemic attack (TIA), and cerebral infarction without residual deficits; Z85.46 Personal history of malignant neoplasm of prostate
CPT/HCPCS: 36415; 70450; 72125; 80053; 85025; 85610; 93005; 99284; J0360; J1953; J7050; U0002